=== PATIENT | female | born 1990 | race American Indian/Alaskan Native ===

== ENCOUNTER 2019-10-01 02:42 | Emergency (ER) | payer MEDICAID ==
[2019-10-01] MEDS ORDERED: ONDANSETRON 4 MG ODT TAB ONE (03:08)
[2019-10-01] MEDS ORDERED: ONDANSETRON 4 MG/2 ML INJ IV ONE (03:21)
[2019-10-01] MEDS ORDERED: KETOROLAC 30 MG/1 ML INJ IV ONE (03:21)
[2019-10-01] MEDS ORDERED: SODIUM CHLORIDE 0.9% 1000 ML 1,000 ML IV ONE (03:21)
[2019-10-01 03:37] LABS: Basophils # (Auto) 0.1 K/mm3 (0.0-0.1); Basophils % (Auto) 0.9 % (0.0-1.8); Eosinophils # (Auto) 0.1 K/mm3 (0.0-0.4); Eosinophils % (Auto) 0.7 % (0.0-4.3); Hematocrit 34.8 % (30.3-42.9); Hemoglobin 11.5 gm/dl (10.1-14.3); Lymphocytes % (Auto) 27.4 % (13.4-35.0); Mean Corpuscular HGB Conc 33 % (30-34); Mean Corpuscular Volume 89 fl (79-97); Monocytes # (Auto) 0.7 K/mm3 (0.0-0.8); Monocytes % (Auto) 10.3 % (0.0-7.3); Platelet Count 263 K/mm3 (140-440); Red Blood Count 3.89 M/mm3 (3.65-5.03); Red Cell Distribution Width 13.9 % (13.2-15.2)
[2019-10-01] MEDS ORDERED: ONDANSETRON 4 MG ODT TAB PO ONE ×2 (03:37→03:43)
--- NOTE | 2019-10-01 03:37 | Emergency Department Report ---
ED Female HPI - General Chief complaint: Abdominal Pain Stated complaint: ABD PAIN/VAGINAL BLEEDING Time Seen by Provider: 10/01/19 03:15 Source: patient, EMS Mode of arrival: Stretcher Limitations: No Limitations - History of Present Illness Initial comments: Pt is a 29 y/o aaf who presents for left lower abd pain that radiates to left flank 7/10 x 1 day. pt state vaginal bleeding start prior to pain. LMP: 6 weeks ago. pt denies vaginal discharge , there is n/v , there is no fever or chills, pt does have hx of renal stones. MD Complaint: vaginal bleeding Onset/Timin -: days(s) Location: suprapubic Radiation: L flank Severity: moderate Severity scale (0 -10): 5 Quality: aching Consistency: constant Improves with: none Worsens with: movement Are you Now?: No Last Menstrual Period: 08/13/19 EDC: 05/19/20 Associated Symptoms: vaginal bleeding, abdominal pain, nausea/vomiting, loss of appetite. denies: vaginal discharge, fever/chills, headaches, dysuria, hematuria, rash, shortness of breath - Related Data Sexually active: Yes Previous Rx's Medication Instructions Recorded Last Taken Type Ciprofloxacin HCl [Ciprofloxacin 500 mg PO BID 10 Days #20 tab 10/01/19 Unknown Rx TAB] Ketorolac [Toradol] 10 mg PO Q6H PRN #12 tablet 10/01/19 Unknown Rx Tamsulosin [Flomax] 0.4 mg PO QDAY #14 cap 10/01/19 Unknown Rx Allergies Allergy/AdvReac Type Severity Reaction Status Date / Time No Known Allergies Allergy Verified 10/01/19 03:09 ED Review of Systems ROS: Stated complaint: ABD PAIN/VAGINAL BLEEDING Other details as noted in HPI Constitutional: denies: chills, fever Eyes: denies: eye pain, eye discharge, vision change ENT: denies: ear pain, throat pain Respiratory: denies: cough, shortness of breath, wheezing Cardiovascular: denies: chest pain, palpitations Endocrine: no symptoms reported Gastrointestinal: abdominal pain, nausea, vomiting. denies: diarrhea, constipation Genitourinary: other (vaginal bleeding ) Musculoskeletal: denies: back pain, joint swelling, arthralgia Skin: denies: rash, lesions Neurological: denies: headache, weakness, paresthesias Psychiatric: denies: anxiety, depression Hematological/Lymphatic: denies: easy bleeding, easy bruising ED Past Medical Hx - Past Medical History Previous Medical History?: Yes Hx Kidney Stones: Yes - Surgical History Past Surgical History?: Yes Additional Surgical History: D&C - Social History Smoking Status: Never Smoker Substance Use Type: None - Medications Home Medications: Home Medications Medication Instructions Recorded Confirmed Last Taken Type Ciprofloxacin HCl [Ciprofloxacin 500 mg PO BID 10 Days #20 tab 10/01/19 Unknown Rx TAB] Ketorolac [Toradol] 10 mg PO Q6H PRN #12 tablet 10/01/19 Unknown Rx Tamsulosin [Flomax] 0.4 mg PO QDAY #14 cap 10/01/19 Unknown Rx ED Physical Exam - General Limitations: No Limitations General appearance: alert, in no apparent distress - Head Head exam: Present: atraumatic, normocephalic - Eye Eye exam: Present: normal appearance, PERRL, EOMI Pupils: Present: normal accommodation - ENT ENT exam: Present: normal exam - Neck Neck exam: Present: normal inspection, full ROM. Absent: tenderness - Respiratory Respiratory exam: Present: normal lung sounds bilaterally. Absent: respiratory distress, wheezes, stridor, chest wall tenderness - Cardiovascular Cardiovascular Exam: Present: regular rate, normal rhythm, normal heart sounds. Absent: systolic murmur, diastolic murmur, rubs, gallop - GI/Abdominal GI/Abdominal exam: Present: soft, tenderness (superpubic), normal bowel sounds. Absent: distended, guarding, rebound, rigid, bruit, hernia - Rectal Rectal exam: Present: deferred - Extremities Exam Extremities exam: Present: normal inspection, full ROM. Absent: tenderness - Back Exam Back exam: Present: normal inspection, full ROM, tenderness, CVA tenderness (L), muscle spasm. Absent: CVA tenderness (R), paraspinal tenderness, vertebral tenderness, rash noted - Neurological Exam Neurological exam: Present: alert, oriented X3, CN II-XII intact, normal gait - Psychiatric Psychiatric exam: Present: normal affect, normal mood - Skin Skin exam: Present: warm, dry, intact, normal color. Absent: rash ED Course Vital Signs 10/01/19 02:46 Temperature 98.6 F Pulse Rate 80 Respiratory 18 Rate Blood Pressure 132/71 O2 Sat by Pulse 99 Oximetry ED Medical Decision Making - Lab Data Result diagrams: 10/01/19 03:16 10/01/19 03:16 Labs 10/01/19 10/01/19 10/01/19 03:16 03:16 03:16 WBC 7.1 RBC 3.89 Hgb 11.5 Hct 34.8 MCV 89 MCH 30 MCHC 33 RDW 13.9 Plt Count 263 Lymph % (Auto) 27.4 Swain % (Auto) 10.3 H Eos % (Auto) 0.7 Baso % (Auto) 0.9 Lymph # 2.0 Swain # 0.7 Eos # 0.1 Baso # 0.1 Seg Neutrophils % 60.7 Seg Neutrophils # 4.3 Sodium 140 Potassium 3.6 Chloride 105.2 Carbon Dioxide 20 L Anion Gap 18 BUN 14 Creatinine 1.0 Estimated GFR > 60 BUN/Creatinine Ratio 14 Glucose 123 H Calcium 9.0 Total Bilirubin 0.30 AST 15 ALT 14 Alkaline Phosphatase 78 Total Protein 7.6 Albumin 4.2 Albumin/Globulin Ratio 1.2 Lipase 60 HCG, Qual Negative Urine Color Urine Turbidity Urine pH Ur Specific [place] Urine Protein Urine Glucose (UA) Urine Ketones Urine Blood Urine Nitrite Urine Bilirubin Urine Urobilinogen Ur Leukocyte Esterase Urine WBC (Auto) Urine RBC (Auto) U Epithel Cells (Auto) Urine Mucus 10/01/19 04:59 WBC RBC Hgb Hct MCV MCH MCHC RDW Plt Count Lymph % (Auto) Swain % (Auto) Eos % (Auto) Baso % (Auto) Lymph # Swain # Eos # Baso # Seg Neutrophils % Seg Neutrophils # Sodium Potassium Chloride Carbon Dioxide Anion Gap BUN Creatinine Estimated GFR BUN/Creatinine Ratio Glucose Calcium Total Bilirubin AST ALT Alkaline Phosphatase Total Protein Albumin Albumin/Globulin Ratio Lipase HCG, Qual Urine Color Red Urine Turbidity Cloudy Urine pH 6.0 Ur Specific [place] 1.019 Urine Protein 100 mg/dl Urine Glucose (UA) Neg Urine Ketones Tr Urine Blood Lg Urine Nitrite Neg Urine Bilirubin Neg Urine Urobilinogen < 2.0 Ur Leukocyte Esterase Neg Urine WBC (Auto) 9.0 H Urine RBC (Auto) > 182.0 U Epithel Cells (Auto) 3.0 Urine Mucus 3+ - Radiology Data Radiology results: report reviewed, image reviewed Findings [facility] [address] [place] [address] Cat Scan Report Signed Patient: JANESSA DAVALOS MR#: [id number] : 1990 Acct:[id number] Age/Sex: 29 / F ADM Date: 10/01/19 Loc: ED Attending Dr: Ordering Physician: PARVEEN THOMPSON NP Date of Service: 10/01/19 Procedure(s): CT abdomen pelvis wo con Accession Number(s): [id number] cc: PARVEEN THOMPSON NP CT ABDOMEN AND PELVIS WITHOUT CONTRAST INDICATION: Left flank pain TECHNICAL: Multiple axial CT images of the abdomen and pelvis were acquired wit hout intravenous contrast. Sagittal and coronal reformats were obtained. All CTs at this facility utilize dose reduction techniques including automated exposure control, iterative reconstruction and weight based dosing when appropriate to reduce patient radiation dose to as low as reasonable achievable. COMPARISON: None FINDINGS: Limited imaging of the bilateral lung bases demonstrates no acute abnormality. Abdomen: Within the limitations of today's noncontrast study, the liver, spleen, gallbladder, pancreas, bilateral adrenal glands and right kidney show no evidence of acute abnormality. There is mild left-sided hydronephrosis and perinephric stranding. There is no evidence of bowel obstruction. The appendix is visualized and appears normal. Pelvis: There is an obstructing 5-6 mm stone in the distal left ureter with mild hydronephrosis. The urinary bladder appears normal. No large amount of free pelvic fluid is visualized. Bones and Soft Tissues: Evaluation of bony structures demonstrates no evidence of acute bony abnormality. IMPRESSION: 1. Obstructing 5-6 mm stone in the distal left ureter with resultant mild hydronephrosis and hydroureter. Signer Name: Marguerite Moyer MD Signed: 10/01/2019 6:27 AM Workstation Name: [id number] Transcribed By: EB Dictated By: Marguerite Moyer MD Electronically Authenticated By: Marguerite Moyer MD Signed Date/Time: 10/01/19626 DD/ 1 TD/TT: - Medical Decision Making CT: left distal urethral 5mm stone, with mild hydronephrosis, pt is voiding without dysuria at this time. there is no fever or chills, plan: cipro, toradol, flomax, follow up urology in 2 days , return to emergency if symptoms worsen, pt verbalized agreement and understanding of same, pt dc'd to home in stable condition. Critical care attestation.: If time is entered above; I have spent that time in minutes in the direct care of this critically ill patient, excluding procedure time. ED Disposition Clinical Impression: Renal stones, Urethral calculus Disposition: - TO HOME OR SELFCARE Is pt being admited?: No Does the pt Need Aspirin: No Condition: Stable Instructions: Kidney Stones (ED) Prescriptions: Ciprofloxacin HCl [Ciprofloxacin TAB] 500 mg PO BID 10 Days #20 tab Tamsulosin [Flomax] 0.4 mg PO QDAY #14 cap Ketorolac [Toradol] 10 mg PO Q6H PRN #12 tablet PRN Reason: Pain Referrals: VIET LAKHANI MD [Staff Physician] - 3-5 Days Forms: Work/School Release Form(ED) Time of Disposition: 07:03
[2019-10-01 04:38] LABS: Alanine Aminotransferase 14 units/L (7-56); Albumin 4.2 g/dL (3.9-5); BUN/Creatinine Ratio 14; Blood Urea Nitrogen 14 mg/dL (7-17); Hemolysis Index 7
[2019-10-01 05:21] LABS: Bilirubin,Urine NEG (Negative); Blood,Urine LG (Negative); Color,Urine Red (Yellow); Mucus,Urine 3+ /HPF; Urobilinogen,Urine < 2.0 mg/dL (<2.0)
[2019-10-01 05:22] LABS: RBC,Urine > 182.0 /HPF (0.0-6.0)
--- NOTE | 2019-10-01 06:31 | Cat Scan Report ---
CT ABDOMEN AND PELVIS WITHOUT CONTRAST INDICATION: Left flank pain TECHNICAL: Multiple axial CT images of the abdomen and pelvis were acquired without intravenous contr ast. Sagittal and coronal reformats were obtained. All CTs at this facility utilize dose reduction techniques including automated exposure control, iterative reconstruction and weight based dosing whe n appropriate to reduce patient radiation dose to as low as reasonable achievable. COMPARISON: None FINDINGS: Limited imaging of the bilateral lung bases demonstrates no acute abnormality. Abdomen: Within the limitations of today's noncontrast study, the liver, spleen, gallbladder, pancrea s, bilateral adrenal glands and right kidney show no evidence of acute abnormality. There is mild lef t-sided hydronephrosis and perinephric stranding. There is no evidence of bowel obstruction. The appe ndix is visualized and appears normal. Pelvis: There is an obstructing 5-6 mm stone in the distal left ureter with mild hydronephrosis. The urinary bladder appears normal. No large amount of free pelvic fluid is visualized. Bones and Soft Tissues: Evaluation of bony structures demonstrates no evidence of acute bony abnorma lity. IMPRESSION: 1. Obstructing 5-6 mm stone in the distal left ureter with resultant mild hydronephrosis and hydroure ter. Signer Name: Marguerite Moyer MD Signed: 10/01/2019 6:27 AM Workstation Name: [id number]
[2019-10-01 07:25] VITALS: BP 125/78
== END 2019-10-01 07:30 | disposition home or self-care (01) ==
LOC: ED 02:42
DX: N21.1 Calculus in urethra (principal); N20.0 Calculus of kidney
CPT/HCPCS: 36415; 74176; 80053; 81001; 83690; 84703; 85025; 87086; 96374; 99284; J1885; J7030; Q0162